=== PATIENT | female | born 1965 | race Two or more races ===

== ENCOUNTER → 2020-04-21 | Outpatient (CLI) | payer OTHER | END | disposition home or self-care (01) | LOC: ECT 14:00 | DX: F33.3 Major depressive disorder, recurrent, severe with psychotic symptoms (principal); F06.1 Catatonic disorder due to known physiological condition; F41.9 Anxiety disorder, unspecified; Z79.899 Other long term (current) drug therapy; I10 Essential (primary) hypertension ==

== ENCOUNTER 2020-04-28 05:40 | Outpatient (RCR) | payer OTHER ==
[~2020-04-28] VITALS: Ht 170.2 cm; Wt 59.4 kg
[2020-04-28] VITALS (8 sets, daily range): BP systolic 129–159; BP diastolic 60–100
[2020-04-28] MEDS ORDERED: Succinylcholine 20mg/ml 10ml vial ONE (05:41)
[2020-04-28] MEDS ORDERED: Methohexital Sodium Syr 100mg/10ml IVP ONE (05:41)
[2020-04-28] MEDS ORDERED: NS 500ML ONE (05:41)
[2020-05-01] VITALS (7 sets, daily range): BP systolic 121–149; BP diastolic 49–82
[2020-05-01] MEDS ORDERED: Succinylcholine 20mg/ml 10ml vial ONE (06:00)
[2020-05-01] MEDS ORDERED: Methohexital Sodium Syr 100mg/10ml IVP ONE (06:00)
[2020-05-01] MEDS ORDERED: NS 500ML ONE (06:00)
[2020-05-01] MEDS ORDERED: Lidocaine 2% MPF 5ml Vial INJ ONE (06:00)
[2020-05-03] VITALS (7 sets, daily range): BP systolic 119–139; BP diastolic 53–70
[2020-05-03] MEDS ORDERED: NS 500ML ONE (07:00)
[2020-05-03] MEDS ORDERED: Methohexital Sodium Syr 100mg/10ml IVP ONE (07:00)
[2020-05-03] MEDS ORDERED: Succinylcholine 20mg/ml 10ml vial ONE (07:00)
[2020-05-03] MEDS ORDERED: Atropine Sulfate 0.4mg/ml inj IVP PRN (09:39)
[2020-05-05] VITALS (7 sets, daily range): BP systolic 120–147; BP diastolic 56–84
[2020-05-05] MEDS ORDERED: Methohexital Sodium Syr 100mg/10ml IVP ONE (06:00)
[2020-05-05] MEDS ORDERED: NS 500ML ONE (06:00)
[2020-05-05] MEDS ORDERED: Succinylcholine 20mg/ml 10ml vial ONE (06:00)
== END 2020-05-06 | disposition home or self-care (01) ==
LOC: ECT 05:40
DX: F06.1 Catatonic disorder due to known physiological condition (principal); F33.3 Major depressive disorder, recurrent, severe with psychotic symptoms; I10 Essential (primary) hypertension; Z90.710 Acquired absence of both cervix and uterus; N73.9 Female pelvic inflammatory disease, unspecified
CPT/HCPCS: 90870; J0330; J7040

== ENCOUNTER 2020-05-08 06:21 | Outpatient (RCR) | payer OTHER ==
[2020-05-08] VITALS (7 sets, daily range): BP systolic 128–154; BP diastolic 66–79
[~2020-05-08] VITALS: Ht 170.2 cm; Wt 59.4 kg
[2020-05-08] MEDS ORDERED: Succinylcholine 20mg/ml 10ml vial ONE ×2 (06:22)
[2020-05-08] MEDS ORDERED: NS 500ML ONE ×2 (06:22)
[2020-05-08] MEDS ORDERED: Methohexita Syr 100mg/10ml IVP ONE ×2 (06:22)
[2020-05-10] VITALS (7 sets, daily range): BP systolic 118–140; BP diastolic 60–74
[2020-05-10] MEDS ORDERED: NS 500ML ONE (06:00)
[2020-05-10] MEDS ORDERED: Methohexita Syr 100mg/10ml IVP ONE (06:00)
[2020-05-10] MEDS ORDERED: Succinylcholine 20mg/ml 10ml vial ONE (06:00)
[2020-05-12] VITALS (7 sets, daily range): BP systolic 127–149; BP diastolic 56–78
[2020-05-15] VITALS (7 sets, daily range): BP systolic 135–151; BP diastolic 64–76
[2020-05-15] MEDS ORDERED: Methohexita Syr 100mg/10ml IVP ONE (06:00)
[2020-05-15] MEDS ORDERED: Succinylcholine 20mg/ml 10ml vial ONE (06:00)
[2020-05-15] MEDS ORDERED: NS 500ML ONE (06:00)
[2020-05-17] VITALS (7 sets, daily range): BP systolic 133–159; BP diastolic 41–79
[2020-05-17] MEDS ORDERED: Succinylcholine 20mg/ml 10ml vial ONE (06:00)
[2020-05-17] MEDS ORDERED: NS 500ML ONE (06:00)
[2020-05-17] MEDS ORDERED: Methohexita Syr 100mg/10ml IVP ONE (06:00)
[2020-05-17] MEDS ORDERED: Atropine Sulfate 0.4mg/ml inj IVP PRN (09:59)
[2020-05-22] VITALS (7 sets, daily range): BP systolic 110–165; BP diastolic 71–84
[2020-05-22] MEDS ORDERED: Methohexita Syr 100mg/10ml IVP ONE (06:00)
[2020-05-22] MEDS ORDERED: Succinylcholine 20mg/ml 10ml vial ONE (06:00)
[2020-05-22] MEDS ORDERED: NS 500ML ONE (06:00)
== END 2020-06-05 | disposition home or self-care (01) ==
LOC: ECT 06:21
DX: F06.1 Catatonic disorder due to known physiological condition (principal); F33.3 Major depressive disorder, recurrent, severe with psychotic symptoms
CPT/HCPCS: 90870; J0330; J7040

== ENCOUNTER 2020-06-09 07:40 | Outpatient (RCR) | payer OTHER ==
[2020-06-09] VITALS (7 sets, daily range): BP systolic 118–139; BP diastolic 54–86
[~2020-06-09] VITALS: Ht 170.2 cm; Wt 59.4 kg
[2020-06-09] MEDS ORDERED: Succinylcholine 20mg/ml 10ml vial ONE (07:41)
[2020-06-09] MEDS ORDERED: NS 500ML ONE (07:41)
[2020-06-09] MEDS ORDERED: Methohexita Syr 100mg/10ml IVP ONE (07:41)
== END 2020-07-06 | disposition home or self-care (01) ==
LOC: ECT 07:40
DX: F06.1 Catatonic disorder due to known physiological condition (principal); F33.3 Major depressive disorder, recurrent, severe with psychotic symptoms
CPT/HCPCS: 90870; J0330; J7040